=== PATIENT | female | born 1960 | race Caucasian/White ===

== ENCOUNTER 2016-12-09 21:43 | Observation (INO) | payer OTHER ==
[2016-12-09] MEDS ORDERED: Sodium Chloride 0.9% 10 ML Syringe FLUSH PRN (21:48)
[2016-12-09] MEDS ORDERED: diphenhydrAMINE 50 MG/ML SDV IVPUSH ONE (21:54)
[2016-12-09 22:49] LABS: CHLORIDE,CL 101 mmol/L (98-107); SODIUM,NA 137 mmol/L (136-145)
[2016-12-10] MEDS ORDERED: Sodium Chloride 0.9% 1,000 ML IV ONE (00:21)
[2016-12-10] MEDS ORDERED: cefTRIAXone 1 GM Vial IVPUSH ONE (00:21)
[2016-12-10] MEDS ORDERED: ALPRAZolam 0.5 MG Tab PO PRN ×2 (05:16→05:26)
[2016-12-10] MEDS ORDERED: Levothyroxine 125 MCG Tab PO SCH (07:00)
[2016-12-10] MEDS ORDERED: Pantoprazole 40 MG Tab.CR PO SCH (07:00)
[2016-12-10] MEDS ORDERED: buPROPion 150 MG Tab.ER PO SCH (08:00)
[2016-12-10] MEDS ORDERED: Celecoxib 100 MG Cap PO SCH (08:00)
[2016-12-10] MEDS ORDERED: Citalopram 20 MG Tab PO SCH (08:00)
[2016-12-10] MEDS ORDERED: SUMAtriptan 50 MG Tab PO ONE (10:04)
[2016-12-10 10:36] VITALS: BP 114/71
--- NOTE | 2016-12-10 12:49 | DISCH ---
PRIMARY DISCHARGE DIAGNOSES: 1. An episode of syncope which the patient had a previous episode back in 2013 with negative work up. She had generalized body weakness, this resolved. She had a head CT that was showing no acute abnormalities and she improved. She was able to get up and use the bathroom and was stable for discharge. 2. Headache, likely migraine headache with new referrals placed to Neurology and pending. 3. Asthma with chronic cough. She has had multiple previous specialty referrals including ENT and Pulmonary. 4. Obesity, hypothyroidism with history of Graves disease. 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 6. History of aseptic meningitis back in 2010 with some memory, hearing, and balance problems related to that it was due to Lamictal. 7. Gastroesophageal reflux disease. 8. Herpes zoster in the thoracic region. 9. Overactive bladder. 10.Post hysterectomy prolapse, ovary still in place. 11.Peptic ulcer disease back in the . 12.Bipolar disorder, on disability for that. 13.Previous syncope. Syncopal episode also with some residual right-sided weakness after that. 14.Generalized anxiety disorder 15. Prediabetes. Significantly improved after weight loss. 16.Mild persistent asthma. 17.Gastritis with bleeding back in 2016. She has been on PPI b.i.d. since. 18.Obstructive sleep apnea, resolved after weight loss. 19.Probable urinary tract infection with hematuria although patient had no symptoms. She received one dose of IV Rocephin during her stay. REASON FOR ADMISSION: On the date of admission, this 56-year-old female was at home. She was cooking supper. She was cooking chili. Smells have been recently bothering her, she started to feel dizzy, she sort of slumped down. Her helped her into the chair and then she passed out several times, so they brought her by private vehicle to the ER. For about 3 hours she did not really know what was going on. Her memory was poor. Her speech was not good. She had generalized weakness everywhere, but this gradually resolved. She did receive 1 L of fluids. She was doing better, she was able to get up and go to the bathroom. She was feeling better but still having headaches off and on; pounding headaches that would come for like 5 minutes. Lights made it worse. It was over the right eye, but it was also across her forehead. She has no personal history of migraines, but many years ago she had some flickering of lights in the peripheral vision and then headaches and was told by an eye doctor, it was probably migraines. She denies that the headache started before this syncopal episode. Otherwise, she denied any burning with urination. She was given a dose of sumatriptan as her headache level was 6. She was observed and decision was made that she could be discharged home with family for regular follow up in the clinic with Dr. Ramsey on December,. DISCHARGE PLANS AND INSTRUCTIONS: She will see Dr. Ramsey on December 15. She has all fasting lab work ordered for that visit which will include a UA as well. Given her large leukocyte esterase and large blood in the urine. Otherwise, she also was positive for benzodiazepines but she already is known to take those on her urine drug screen as she does follow closely with Psychiatry. No prescription for sumatriptan was given as she likely would not be able to get it from the pharmacy until next week. Anyhow and new Neurology referral was placed as well. She was encouraged to avoid smells a bother her and drink more liquids like sugar free Gatorade. It is unclear if her blood sugar around 71 did contribute at all to her symptoms. So another Accu-Chek was checked also prior to discharge and it was over 100. Discharge exam: She reported headache was improved Heart was regular Lungs Clear to auscultation, no crackles Abdomen soft and nontender Extremity: No edema, normal strength HEENT: Neck non tender with normal ROM Eyes: PERRL, EOMFI MKA: 12/10/2016 11:34:01 MODL: 12/10/2016 12:42:35 /[id number]
[2016-12-10] MEDS ORDERED: Divalproex Sodium 500 MG Tab.ER PO SCH (20:00)
[2016-12-10] MEDS ORDERED: Famotidine 20 MG Tab PO SCH (20:00)
[2016-12-10] MEDS ORDERED: ClonazePAM 0.5 MG Tab PO SCH (20:00)
[2016-12-10] MEDS ORDERED: Docusate Sodium 100 MG Cap PO SCH (20:00)
--- NOTE | 2016-12-13 08:25 | ER ---
Date of Service: 12/09/2016 SUBJECTIVE: Christine presents to the emergency room following a syncopal episode. Family states that she was cooking dinner when she developed onset of syncope. She did complain of headache and states that she has been diagnosed with possible migraine headaches, triggered by smells and lights. She states that she did see some flashing type light aura in her vision. Family placed her in the family car and drove her to the emergency room. On arrival to the emergency room, she was unresponsive and had to be lifted out of her car and brought into the emergency room for evaluation. On arrival into the emergency room, the patient did regain consciousness per nursing staff, but did complain of severe global weakness to both her upper and lower extremities. Her medical record was reviewed and she was found to have a similar episode in 2013 with an episode of syncope preceding severe global weakness. The patient was subsequently transferred to [facility] in [place]. She underwent an MRI, neuro, and cardiology consults and the exact etiology of that episode was unclear. The patient does have a history of bipolar disorder and a personal history of TIA. PAST MEDICAL HISTORY: 1. History of vasovagal syncope. 2. Personal history of cerebrovascular disease. 3. Bipolar disorder. 4. Hypothyroidism. 5. Obstructive sleep apnea. 6. Obesity. 7. 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 8. Depression. 9. Anxiety. ALLERGIES: Lamictal and nylon. SOCIAL HISTORY: She is a never smoker. She is a social drinker. She denies any street drug use. She is and is disabled. FAMILY HISTORY: 1. Positive for alcoholism and COPD. 2. Cancer. 3. Heart disease. REVIEW OF SYSTEMS: General: Denies any fever or chills. HEENT: Again complained of a mild headache behind her right eye which since resolved, also complains of a flashing light aura. Her speech is somewhat slurred according to her family. Respiratory: No shortness breath. Cardiac: Denies any substernal chest pain. No jaw, arm, neck, or back pain. GI: No nausea, vomiting, or diarrhea. No melena, hematochezia, or hematemesis. : Denies any dysuria. Musculoskeletal: No myalgias or arthralgias. Neurologic: Positive for decreased level of consciousness, upper and lower extremity weakness, and a syncopal episode. She had no incontinence. She did not bite her tongue. PHYSICAL EXAMINATION: General: This is a 56-year-old female patient, who is in moderate amount of distress initially. Vital signs: Blood pressure is 153/82, pulse rate is 98, respiratory rate 16, O2 saturations 100% on room, and temperature is 36.9. Skin: Warm, pale, and dry. HEENT: Head is normocephalic, atraumatic. Eyes, PERRLA. Extraocular movements are intact. There is no funduscopic papilledema noted. Her extraocular movements are intact. Ears, TMs are clear. Mouth, oral mucosa is moist. Lungs: Clear to auscultation. Heart: Regular rate and rhythm. Abdomen: Soft, nontender. There is no hepatosplenomegaly noted. There is no masses noted. Extremities: Without edema. Initially, she was unable to voluntarily move either of her upper or lower extremities, but the strength slowly resolved. At time of admission, her strength was approximately 3/5. LABORATORY DATA: WBC is 6.1, hemoglobin is 14.2, platelet is 177. Coags, PT is 10.4 and INR is 0.9. Sodium is 137, potassium is 4.1, chloride is 101, bicarb is 25, BUN is 23, creatinine is 1.2. GFR is 46. Glucose is 71, calcium is 9.0, corrected calcium is 9.24, total bilirubin is 0.2. AST is 12, ALT is 25, alkaline phosphatase is 109, CK is 65, CK-MB is 1.0. Troponin is less than 0.017. Total protein 7.2, albumin is 3.7, TSH is 3.79. Blood alcohol was negative. Urinalysis did reveal leukocytes consistent with urinary tract infection. Her urine drug screen was also positive for benzodiazepines which she is prescribed. CT scan of the patient's brain was obtained, it was negative for acute pathology. Portable 1-view chest radiograph did not reveal any acute pathology. EMERGENCY ROOM COURSE: IV access was established. She was started on normal saline at 125 an hour. She was given Benadryl 50 mg IM as she was experiencing some tremulousness and what appeared to be involuntary movements of both her upper and lower extremities. There was concern that possibly she was experiencing some type of dystonic reaction secondary to the medications that she was on. After she was given the Benadryl, the involuntary movements did continue. She was continually reassessed while she was in the emergency room and her strength in her upper and lower extremities did begin to return. She was able to begin to answer her own questions as her had been answering all of her questions prior to this. She was resistive to the possibility of transfer to [facility] stating that she was "well enough to go home." It was at that time that her symptoms really began to improve significantly and she was nearing her full strength in her extremities. ASSESSMENT: Syncopal episode with global weakness to upper and lower extremities. PLAN: The patient will be admitted on observation status. I did speak with Dr. Mistry, the hospitalist on-call at [place] regarding this patient. Decision was made to admit the patient on observation and evaluate her neurological status every approximately 1 to 2 hours. She will be given Rocephin 1 g IV for her UTI. I do not feel that her urinary tract infection is likely causing these neurological problems. We will monitor for seizure activity or recurrence of her syncope. The patient states that she is a code level 1. I did speak with Katrin Ramsey, who is the patient's primary care provider regarding this patient and she stated that the patient should be admitted on observation on my service and she would discharge her in the morning. MWK: 12/10/2016 00:54:07 MODL: 12/10/2016 01:41:23 /[id number]
--- NOTE | 2016-12-14 07:46 | ER ---
Date of Service: 12/09/2016 ADDENDUM: Please note this patient's ER note on may be used as her admission H and P. MWK: 12/13/2016 19:13:08 MODL: 12/13/2016 23:47:07 /[id number]
== END 2016-12-10 12:14 | disposition home or self-care (01) ==
LOC: VM.ED 21:43 → VM.MS 12-10 00:30
PROVIDERS: ADMIT Physician Assistant; ATTEND Physician Assistant
DX: R55 Syncope and collapse (principal); R51 Headache; E66.9 Obesity, unspecified; L51.1 Stevens-Johnson syndrome; J45.30 Mild persistent asthma, uncomplicated; K21.9 Gastro-esophageal reflux disease without esophagitis; B02.9 Zoster without complications; N32.81 Overactive bladder; Z87.11 Personal history of peptic ulcer disease; F31.9 Bipolar disorder, unspecified; F41.1 Generalized anxiety disorder; R73.03 Prediabetes; G47.33 Obstructive sleep apnea (adult) (pediatric); Z86.61 Personal history of infections of the central nervous system; Z87.19 Personal history of other diseases of the digestive system; Z79.899 Other long term (current) drug therapy; Z98.890 Other specified postprocedural states
CPT/HCPCS: 36415; 70450; 71010; 80053; 80305; 81001; 82550; 82553; 82962; 84443; 84484; 85025; 85610; 93005; 96374; 96375; 99285; A9270; G0480; J0696; J1200; J7030; J7050; G0378